=== PATIENT | female | born 1960 | race Asian ===

== ENCOUNTER 2017-12-19 14:42 | Emergency (ER) | payer OTHER ==
[~2017-12-19] VITALS: Ht 152.4 cm; Wt 45.8 kg
[2017-12-19 16:25] LABS: ABSOLUTE BASOPHIL COUNT 0 /CUMM (0.0-0.2); ABSOLUTE EOSINOPHIL COUNT 0.1 /CUMM (0.0-0.7); ABSOLUTE GRANULOCYTE CT 2.5 /CUMM (1.4-6.5); ABSOLUTE LYMPH COUNT 1.4 /CUMM (1.2-3.4); ABSOLUTE MONOCYTE COUNT 0.4 /CUMM (0.10-0.60); BASOPHIL % 0.7 % (0.0-2.0); EOSINOPHIL % 2.7 % (0-5); GRANULOCYTE % 55.9 % (42.2-75.2); MEAN CORPUSCULAR HGB 30.2 PG (27.0-31.0); MEAN CORPUSCULAR HGB CONC 34.1 G/DL (33.0-37.0); MEAN CORPUSCULAR VOLUME 88.4 FL (81.0-99.0); MEAN PLATELET VOLUME 7.9 FL (7.4-10.4); PLATELET COUNT 215 /CUMM (130-400); RBC DISTRIBUTION WIDTH 12.6 % (11.5-14.5); RED BLOOD CELL CT 4.41 /CUMM (4.20-5.40); WHITE BLOOD CELL COUNT 4.6 /CUMM (4.8-10.8)
--- NOTE | 2017-12-19 17:36 | ED GI/GU/ABDOMINAL COMPLAINT ---
History of Present Illness General Chief Complaint: Abdominal Pain/Flank Pain Stated Complaint: UPPER/LOWER ABD PAIN Source: patient Exam Limitations: no limitations Vital Signs & Intake/Output Vital Signs & Intake/Output Vital Signs Date Time Temp Pulse Resp B/P B/P Pulse O2 O2 Flow FiO2 Mean Ox Delivery Rate 12/19 1743 98.8 57 16 117/64 100 12/19 1700 98.1 54 16 119/70 98 Room Air 12/19 1629 100 Nasal 2.0L Cannula 12/19 1455 97.4 60 20 101/69 98 Room Air Allergies Coded Allergies: ciprofloxacin (From CIPRO) (Mild, ITCHY RASH 12/19/17) Uncoded Allergies: FARM RAISED FISH (Mild, RASH 12/19/17) Triage Note: TRIAGE: PT TO ER C/C MID ABD PAIN, ONSET 12/14 AFTER HAVING UPPER AND LOWER ENDOSCOPY WHICH SHE HAD FOR S/S OF BLEEDING FROM RECTUM x 10 DAYS. STATES HAS NOT HAD BLEEDING SINCE THE PROCEDURE. CALLED DR SEWELL OFFICE THIS AM, PT WAS TOLD THAT DR SEWELL WAS NOT IN THE OFFICE THIS WEEK AND THAT HE WAS IN THE HOSPITAL. VIET AMADO AT TRIAGE FOR EVAL. Triage Nurses Notes Reviewed? yes ? N Is pt currently ? No HPI: Patient presents for evaluation of abdominal pain. The pain began roughly 5 days ago coincident with the steinberg endoscopy. Patient had the endoscopy/ colonoscopy as an evaluation for intestinal bleeding that fortunately has resolved. The patient's describes a somewhat sharp diffuse abdominal pain most intense in the epigastric region. In addition the patient feels fatigued and nauseous. Patient denies associated fever, vomiting or diarrhea. Patient denies association with eating. She hasn't tried any medications to this point for the pain. Patient denied bright red rectal bleeding or melena. Past History Travel History Traveled to [place] past 21 day No Medical History Any Pertinent Medical History? 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 No Review of Systems Review of Systems Constitutional: Reports: no symptoms. EENTM: Reports: no symptoms. Respiratory: Reports: no symptoms. Cardiovascular: Reports: no symptoms. GI: Reports: see HPI. Genitourinary: Reports: no symptoms. Musculoskeletal: Reports: no symptoms. Skin: Reports: no symptoms. Neurological/Psychological: Reports: no symptoms. Hematologic/Endocrine: Reports: no symptoms. Immunologic/Allergic: Reports: no symptoms. All Other Systems: Reviewed and Negative Physical Exam Physical Exam Gastrointestinal: SEE BELOW Comments: Gen.: Well-nourished, well-developed, no acute respiratory distress. Head: Normocephalic, atraumatic. Eyes: Normal inspection bilaterally Ears: Normal inspection bilaterally Nose: Normal inspection Throat/mouth : Moist mucosa Neck: Supple, full range of motion, no goiter Heart: Regular rate and rhythm, no murmurs rubs or gallops Lungs: Clear to auscultation bilaterally with normal air entry Chest: Nontender Back: Normal range of motion Abdomen: Soft, diffuse abdominal tenderness without rebound or guarding, nondistended, normal bowel sounds Extremities: Normal range of motion grossly, equal radial pulses, no cyanosis clubbing or edema Neurologic: Cranial nerves grossly intact, speech is clear Skin: warm and dry Psychiatric: Calm, cooperative, no apparent delusions or hallucinations Core Measures ACS in differential dx? No Sepsis Present: No Sepsis Focused Exam Completed? No Progress Differential Diagnosis: PERFORATION, OBSTRUCTION, DIVERTICULITIS, PANCREATITIS, ILEUS Plan of Care: Orders Procedure Date/time Status URINALYSIS 12/19 1445 Complete TROPONIN LEVEL 12/19 1444 Complete LIPASE 12/19 1444 Complete COMPREHENSIVE METABOLIC PANEL 12/19 1444 Complete CBC WITHOUT DIFFERENTIAL 12/19 1444 Complete AMYLASE 12/19 1444 Complete EKG 12/19 1444 Active Laboratory Tests 12/19/17 1853: Urine Color YEL, Urine Clarity CLEAR, Urine pH 7.5, Ur Specific [place] 1.010, Urine Protein NEG, Urine Ketones NEG, Urine Nitrite NEG, Urine Bilirubin NEG, Urine Urobilinogen 0.2, Ur Leukocyte Esterase TRACE H, Ur Microscopic SEDIMENT EXAMINED, Urine RBC FEW H, Urine WBC 3-5 H, Ur Epithelial Cells FEW, Urine Hemoglobin NEG, Urine Glucose NEG 12/19/17 1610: Anion Gap 8, Estimated GFR > 60, BUN/Creatinine Ratio 21.3, Glucose 85, Calcium 9.0, Total Bilirubin 0.2, AST 19, ALT 18, Alkaline Phosphatase 67, Troponin I < 0.01, Total Protein 6.2 L, Albumin 3.7, Globulin 2.5, Albumin/Globulin Ratio 1.5, Amylase 93, Lipase 103, CBC w Diff NO MAN DIFF REQ, RBC 4.41, MCV 88.4, MCH 30.2, MCHC 34.1, RDW 12.6, MPV 7.9, Gran % 55.9, Lymphocytes % 31.5, Monocytes % 9.2, Eosinophils % 2.7, Basophils % 0.7, Absolute Granulocytes 2.5, Absolute Lymphocytes 1.4, Absolute Monocytes 0.4, Absolute Eosinophils 0.1, Absolute Basophils 0 Diagnostic Imaging: Discussed w/RAD: CT Scan. Radiology Impression: PATIENT: RADHA SOLER PRESENT AGE: 57 PATIENT ACCOUNT NO: [id number] : 60 LOCATION: [facility] ORDERING PHYSICIAN: Edgard Lozoya MD SERVICE DATE: 12/19/17 EXAM TYPE : CAT - CT ABD & PELVIS W IV CONTRAST EXAMINATION: CT ABDOMEN AND PELVIS WITH CONTRAST CLINICAL INFORMATION: Concern for perforation. Persistent abdominal pain after endoscopy and colonoscopy. COMPARISON: None. TECHNIQUE: Multidetector volumetric imaging was performed of the abdomen and pelvis following IV administration of 95 mL of Optiray 320 intravenous contrast. Sagittal and coronal reformatted images were obtained on the technologist's workstation. DLP: 241.39 mGy-cm FINDINGS: LUNG BASES: The visualized lung bases are unremarkable. Breast implant present in the left breast. LIVER, GALLBLADDER, AND BILIARY TREE: The liver is normal in size, shape, and attenuation. No focal hepatic lesion or biliary ductal dilatation is present. The gallbladder is contracted. The extrahepatic CBD is dilated to 1 cm. There is no calcified stone in the bile ducts. PANCREAS: Pancreatic duct is slightly dilated to a diameter of about 3 mm at the mid body. There is no mass. No inflammation involving the pancreas or the surrounding peripancreatic fat planes. SPLEEN: Unremarkable. ADRENAL GLANDS: Unremarkable. 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 The left kidney is low in position due to this fusion of the renal pelvis just to the right of midline. The right kidney is in normal position in the right renal fossa. There is no renal or ureteral calculus. There is no hydronephrosis. BLADDER: Unremarkable. GASTROINTESTINAL TRACT: There is no acute change of the bowel. No bowel obstruction. No bowel wall thickening or edema. There is a moderate to large volume of stool throughout the colon. The appendix is normal. The small bowel loops are unremarkable. ABDOMINAL WALL: No significant hernia is appreciated. LYMPH NODES: Normal. VASCULAR: There are prominent veins along the left and right pelvic sidewall with prominent gonadal veins. There is normal enhancement of the abdominal and pelvic vasculature. PELVIC VISCERA: The uterus is retroverted. There is no adnexal abnormality. OSSEOUS STRUCTURES: Unremarkable. IMPRESSION: There is no acute abnormality of the abdomen or the pelvis. DICTATED BY: Jeancarlos Jennings MD DATE/TIME DICTATED:12/19/171843 MANNEQUIN MAKER:ARCHANA DATE/TIME TRANSCRIBED:12/19/171843 CONFIDENTIAL, DO NOT COPY WITHOUT APPROPRIATE AUTHORIZATION. <Electronically signed in Other Vendor System> SIGNED BY: Jeancarlos Jennings MD 12/19/171907 Initial ED EKG: NSR, rate, nonspecific ST T wave chg (V2-V3) Comments: 12/19/2017 8:11:16 PM I have updated Radha on her test results. I will treat her with Levsin for her abdominal pain. In regards to her EKG, her changes are nonspecific and she lacks risk factors for coronary artery disease. Since she denies chest pain I do not feel she is suffering from an acute coronary syndrome. I suspect the EKG changes are likely chronic. Again I feel she is stable for discharge with treatment of her abdominal pain and follow-up with her GI specialist. Departure Departure Disposition: HOME OR SELF CARE Condition: Stable Clinical Impression Primary Impression: Abdominal pain Qualifiers: Abdominal location: generalized Qualified Code: R10.84 - Generalized abdominal pain Referrals: Dmitry Denis MD (PCP/Family) Additional Instructions: Levsin as needed for your abdominal pain. Follow-up with your GI specialist tomorrow for reevaluation. Return if any concerns or sudden worsening. Please note that there might be incidental findings in your evaluation that are unrelated to the current emergency department visit. Please notify your primary care doctor about this emergency department visit in order to obtain and review all of the testing performed so that these incidental findings can be monitored as needed. If you had an x-ray performed, please understand that some fractures or other findings may not be seen on the initial set of x-rays. If your symptoms persist you might need a repeat set of x-rays to check for such a fracture. If you had a laceration evaluated, please understand that foreign bodies such as glass or wood may not be visible to the naked eye or on plain x-rays. If the wound becomes red, swollen, increasingly more painful or if there is any drainage from the wound, please have it reevaluated by a physician for the possibility of a retained foreign body. If you're unable to follow up as outlined in the discharge instructions please return to the emergency department. Thank you for choosing the [facility] Emergency Department for your care. It was a pleasure to serve you today. Edgard Lozoya M.D. [facility] Departure Forms: Customer Survey General Discharge Information Prescriptions: Current Visit Scripts Hyoscyamine (Levsin) 1-2 TAB PO Q6P PRN ABDOMINAL CRAMPS #20 TAB
--- NOTE | 2017-12-19 19:08 | CT SCAN REPORT ---
EXAMINATION: CT ABDOMEN AND PELVIS WITH CONTRAST CLINICAL INFORMATION: Concern for perforation. Persistent abdominal pain after endoscopy and colonoscopy. COMPARISON: None. TECHNIQUE: Multidetector volumetric imaging was performed of the abdomen and pelvis following IV administration of 95 mL of Optiray 320 intravenous contrast. Sagittal and coronal reformatted images were obtained on the technologist's workstation. DLP: 241.39 mGy-cm FINDINGS: LUNG BASES: The visualized lung bases are unremarkable. Breast implant present in the left breast. LIVER, GALLBLADDER, AND BILIARY TREE: The liver is normal in size, shape, and attenuation. No focal hepatic lesion or biliary ductal dilatation is present. The gallbladder is contracted. The extrahepatic CBD is dilated to 1 cm. There is no calcified stone in the bile ducts. PANCREAS: Pancreatic duct is slightly dilated to a diameter of about 3 mm at the mid body. There is no mass. No inflammation involving the pancreas or the surrounding peripancreatic fat planes. SPLEEN: Unremarkable. ADRENAL GLANDS: Unremarkable. 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 The left kidney is low in position due to this fusion of the renal pelvis just to the right of midline. The right kidney is in normal position in the right renal fossa. There is no renal or ureteral calculus. There is no hydronephrosis. BLADDER: Unremarkable. GASTROINTESTINAL TRACT: There is no acute change of the bowel. No bowel obstruction. No bowel wall thickening or edema. There is a moderate to large volume of stool throughout the colon. The appendix is normal. The small bowel loops are unremarkable. ABDOMINAL WALL: No significant hernia is appreciated. LYMPH NODES: Normal. VASCULAR: There are prominent veins along the left and right pelvic sidewall with prominent gonadal veins. There is normal enhancement of the abdominal and pelvic vasculature. PELVIC VISCERA: The uterus is retroverted. There is no adnexal abnormality. OSSEOUS STRUCTURES: Unremarkable. IMPRESSION: There is no acute abnormality of the abdomen or the pelvis.
[2017-12-19] MEDS ORDERED: LEVSIN0.125 M1 PO (20:14)
[2017-12-19 20:30] VITALS: BP 112/70
== END 2017-12-19 21:00 ==
LOC: ERH 14:42
PROVIDERS: Physician Assistant Medical
DX: R10.84 Generalized abdominal pain (principal)
CPT/HCPCS: 74177; 81001; 93005; 93010